=== PATIENT | female | born 1960 | race Two or more races ===

== ENCOUNTER 2023-03-14 10:15 | Emergency (ER) | payer OTHER ==
[~2023-03-14] VITALS: Ht 160 cm; Wt 81.6 kg
[~2023-03-14 10:15] MED LIST: AMBIEN10 MG; CLONAZEPAM0.5 MG; HUMALOG100 U/ML; HUMULIN 70/30 PE3 ML; SEROQUEL300 MG; SEROQUEL50 MG
[2023-03-14] MEDS ORDERED: LANTUS SOL100 UNIT/1 SQ (10:50)
[2023-03-14] MEDS ORDERED: TRAZODONE HCL50 MG PO (10:50)
[2023-03-14] MEDS ORDERED: ATIVAN1 M1 PO (10:51)
[2023-03-14] MEDS ORDERED: GLUMETZA1000 MG (10:52)
[2023-03-14] MEDS ORDERED: PROZAC40 MG PO (10:52)
[2023-03-14] MEDS ORDERED: GLUCOTROL XL5 MG PO (10:53)
[2023-03-14] MEDS ORDERED: ATIVAN0.5 M1 PO (10:53)
== END 2023-03-14 13:54 | disposition home or self-care (01) ==
LOC: ER 10:15
DX: K59.00 Constipation, unspecified (principal); E11.9 Type 2 diabetes mellitus without complications; Z79.4 Long term (current) use of insulin; Z79.84 Long term (current) use of oral hypoglycemic drugs; I10 Essential (primary) hypertension; Z88.8 Allergy status to other drugs, medicaments and biological substances

== ENCOUNTER 2023-11-20 13:32 | Emergency (ER) | payer OTHER ==
[~2023-11-20] VITALS: Ht 167.6 cm; Wt 83.5 kg
[~2023-11-20 13:32] MED LIST changes: +ATIVAN0.5 M1 PO; +ATIVAN1 M1 PO; +GLUCOTROL XL5 MG PO; +GLUMETZA1000 MG; +LANTUS SOL100 UNIT/1 SQ; +PROZAC40 MG PO; +TRAZODONE HCL50 MG PO
== END 2023-11-20 16:03 | disposition home or self-care (01) ==
LOC: ER 13:32
DX: B86 Scabies (principal); Z91.041 Radiographic dye allergy status; I10 Essential (primary) hypertension; E11.9 Type 2 diabetes mellitus without complications; Z79.4 Long term (current) use of insulin; F32.89 Other specified depressive episodes